=== PATIENT | female | born 1955 | race Caucasian/White ===

== ENCOUNTER 2020-08-01 17:23 | Emergency (ER) | payer SELFPAY ==
[~2020-08-01 17:23] MED LIST: LEVEMIR100 U/M1 SQ; LEXAPRO10 MG PO; METFORMIN500 MG PO; NORCO 325 MG-101 TA1 PO; PROVIGIL200 MG PO; VICTOZA6 MG/ML SQ; VITAMIN D22000 IU PO; ZOCOR40 MG PO
[2020-08-01 18:03] LABS: BASO # 0.05 (0.02-0.10); EOS # 0.32 (0.04-0.40); EOS % 2.3 % (1.0-5.0); HEMATOCRIT 39.1 % (37.0-47.0); HEMOGLOBIN 13.1 g/dL (12.5-16.0); LYMPH# 1.67 (1.50-4.00); MEAN CELL VOLUME 84 fl (78-100); MEAN CORPUSCULAR HEMOGLOBIN 28 pg (27-31); MEAN CORPUSCULAR HGB CONC 34 g/dL (33-37); MEAN PLATELET VOLUME 9.2 fl (7.4-10.4); MONO # 1.41 (0.20-0.80); NEU # 10.25 (1.40-6.50); PLATELET COUNT 317 K/mm3 (130-400); RED BLOOD COUNT 4.65 M/mm3 (4.10-5.30); RED CELL DISTRIBUTION WIDTH 12.4 % (11.5-14.5); WHITE BLOOD COUNT 13.8 K/mm3 (4.8-10.8)
[2020-08-01 18:20] LABS: POTASSIUM 4.3 mmol/L (3.5-5.1)
[2020-08-01 18:21] LABS: CALCIUM 9.4 mg/dL (8.3-10.5)
[2020-08-01] MEDS ORDERED: METFORMIN ER500 MG PO (19:01)
[2020-08-01] MEDS ORDERED: ACETAMINOPHEN-H1 TA1 PO (19:01)
[2020-08-01] MEDS ORDERED: SIMVASTATIN40 M1 PO (19:01)
[2020-08-01] MEDS ORDERED: ESCITALOPRAM10 MG PO (19:02)
[2020-08-01 22:47] VITALS: BP 143/70
== END 2020-08-01 22:46 | disposition short-term general hospital (02) ==
LOC: ED 17:23
PROVIDERS: Family Medicine
DX: E11.69 Type 2 diabetes mellitus with other specified complication (principal); M86.9 Osteomyelitis, unspecified; E11.51 Type 2 diabetes mellitus with diabetic peripheral angiopathy without gangrene; E11.621 Type 2 diabetes mellitus with foot ulcer; L97.519 Non-pressure chronic ulcer of other part of right foot with unspecified severity; E11.40 Type 2 diabetes mellitus with diabetic neuropathy, unspecified; E78.5 Hyperlipidemia, unspecified; F41.9 Anxiety disorder, unspecified; F32.9 Major depressive disorder, single episode, unspecified; Z88.0 Allergy status to penicillin; Z20.822 Contact with and (suspected) exposure to COVID-19; Z79.84 Long term (current) use of oral hypoglycemic drugs
CPT/HCPCS: 90715; J1335; J1815; J3370; J7050

== ENCOUNTER → 2022-12-03 | Outpatient (CLI) | payer MEDICARE, OTHER ==
[~2022-12-03] MED LIST changes: +ACETAMINOPHEN-H1 TA1 PO; +ESCITALOPRAM10 MG PO; +METFORMIN ER500 MG PO; +SIMVASTATIN40 M1 PO
[2022-12-03 16:25] LABS: BASO # 0.02 K/mm3 (0.02-0.10); EOS # 0.61 K/mm3 (0.04-0.40); HEMATOCRIT 38.3 % (37.0-47.0); HEMOGLOBIN 12.6 g/dL (12.5-16.0); LYMPH# 2.15 K/mm3 (1.50-4.00); MEAN CELL VOLUME 89 fl (78-100); MEAN CORPUSCULAR HEMOGLOBIN 29 pg (27-31); MEAN CORPUSCULAR HGB CONC 33 g/dL (33-37); MEAN PLATELET VOLUME 9.5 fl (7.4-10.4); NEU # 6.54 K/mm3 (1.40-6.50); PLATELET COUNT 250 K/mm3 (130-400); RED BLOOD COUNT 4.29 M/mm3 (4.10-5.30); RED CELL DISTRIBUTION WIDTH 12.5 % (11.5-14.5); WHITE BLOOD COUNT 10.2 K/mm3 (4.8-10.8)
[2022-12-03 16:32] LABS: CALCIUM 9.2 mg/dL (8.3-10.5)
== END ==
LOC: LAB 15:56
PROVIDERS: Internal Medicine
DX: E11.65 Type 2 diabetes mellitus with hyperglycemia (principal); I10 Essential (primary) hypertension

== ENCOUNTER → 2023-12-02 | Outpatient (CLI) | payer MEDICARE, OTHER ==
[2023-12-02 16:26] LABS: BASO # 0.02 K/mm3 (0.02-0.10); EOS # 0.71 K/mm3 (0.04-0.40); EOS % 5.6 % (1.0-5.0); HEMATOCRIT 39.7 % (37.0-47.0); LYMPH# 4.82 K/mm3 (1.50-4.00); MEAN CELL VOLUME 86 fl (78-100); MEAN CORPUSCULAR HEMOGLOBIN 28 pg (27-31); MEAN CORPUSCULAR HGB CONC 33 g/dL (33-37); MEAN PLATELET VOLUME 9.9 fl (7.4-10.4); MONO # 1.08 K/mm3 (0.20-0.80); NEU # 6.12 K/mm3 (1.40-6.50); PLATELET COUNT 308 K/mm3 (130-400); RED CELL DISTRIBUTION WIDTH 13.4 % (11.5-14.5); WHITE BLOOD COUNT 12.8 K/mm3 (4.8-10.8)
[2023-12-02 16:35] LABS: ALBUMIN 4.3 g/dL (3.4-4.8)
[2023-12-02 16:36] LABS: CALCIUM 9.7 mg/dL (8.3-10.5)
[2023-12-02 16:39] LABS: TOTAL BILIRUBIN 0.4 mg/dL (0.2-1.2)
[2023-12-02 16:44] LABS: MAGNESIUM 1.89 mg/dL (1.60-2.60)
== END ==
LOC: LAB 16:00
PROVIDERS: Internal Medicine
DX: I10 Essential (primary) hypertension (principal); E78.5 Hyperlipidemia, unspecified; K90.9 Intestinal malabsorption, unspecified